=== PATIENT | female | born 1940 | race Two or more races ===

== ENCOUNTER 2016-12-07 09:44 | Emergency (ER) | payer OTHER ==
[~2016-12-07] VITALS: Ht 152.4 cm; Wt 59.0 kg
[~2016-12-07 09:44] MED LIST: CIPR500T4 PO; DICL50TA11 PO; DIVA250T12 PO; LABE200T25 PO; LISI40TA9 PO; METF-382 PO; QUET25TA26 PO
[2016-12-07 09:48] VITALS: Ht 152.4 cm; Wt 59.0 kg
[2016-12-07] MEDS ORDERED: SOD CHLORIDE 0.9% 500 ML IV STA (10:33)
[2016-12-07] MEDS ORDERED: DIVA500T15 PO (10:50)
[2016-12-07] MEDS ORDERED: NIFE90TA11 PO (10:51)
[2016-12-07] MEDS ORDERED: METF500T3 PO (10:51)
[2016-12-07] MEDS ORDERED: QUET50TA22 PO (10:52)
[2016-12-07] MEDS ORDERED: ASPI-664 PO (10:52)
[2016-12-07] MEDS ORDERED: LEVO75TA65 PO (10:52)
[2016-12-07 11:21] LABS: ALBUMIN 4.5 g/dl (3.3-4.9)
[2016-12-07 11:22] LABS: POTASSIUM 3.9 mmol/L (3.5-5.1)
[2016-12-07 11:23] LABS: BASOPHILS % 0.5 % (0.0-2.0); EOSINOPHILS % 0.4 % (0.0-7.0); HEMATOCRIT 41.1 % (37.0-47.0); HEMOGLOBIN 13.7 g/dl (12.0-16.0); LYMPHOCYTES # 3.2 10^3/ul (0.8-2.9); LYMPHOCYTES % 38.6 % (15.0-51.0); MEAN CORPUSCULAR HEMOGLOBIN 30.4 pg (29.0-33.0); MEAN CORPUSCULAR HGB CONC 33.4 g/dl (32.0-37.0); MEAN CORPUSCULAR VOLUME 90.9 fl (82.0-101.0); MEAN PLATELET VOLUME 7.1 fl (7.4-10.4); MONOCYTE # 0.5 10^3/ul (0.3-0.9); NEUTROPHIL # 4.5 10^3/ul (1.6-7.5); NEUTROPHILS % 54.5 % (39.0-77.0); PLATELET COUNT 317 10^3/UL (140-440); RED BLOOD COUNT 4.52 10^6/ul (4.20-5.40); RED CELL DISTRIBUTION WIDTH 13.6 % (11.5-14.5); UNCORRECTED WBC 8.2 10^3/ul (4.8-10.8); WHITE BLOOD COUNT 8.2 10^3/ul (4.8-10.8)
[2016-12-07 11:24] LABS: BILIRUBIN,INDIRECT 0.3 mg/dl (0-1.1); BILIRUBIN,TOTAL 0.3 mg/dl (0.2-1.3); CREATININE 0.78 mg/dl (0.44-1.00)
[2016-12-07 11:25] LABS: CALCIUM 9.2 mg/dl (8.4-10.2)
[2016-12-07 11:28] LABS: CONDITION 1
[2016-12-07 12:03] VITALS: BP 165/88; PULSE 75; RESP 18
--- NOTE | 2016-12-25 06:45 | EN ---
Date/Time of Note Date/Time of Note DATE: 12/07/16 TIME: 10:38 (AVE YOUNG) ER Progress Note 76 y/o female, accompanied by son presents to ED for decreased appetite for about 2 weeks, generalized weakness. Her son states that she only chews her food and spits it out but usually prefers cookies or sweet foods. Denies headache, loss of consciousness, dizziness, blurry vision, changes in vision, photophobia, facial pain, ear pain, throat pain, difficulty swallowing, neck pain, shoulder pain, chest pain, cough, hemoptysis, abdominal pain, back pain, nausea, vomiting, hematochezia, diarrhea, constipation, urinary symptoms, bladder and bowel incontinences, extremity weakness, extremity tenderness, numbness or tingling sensation, difficulty walking, recent travel, recent exposure to illness, recent antibiotic use in the last 3 months, fever, chills. Allergy: NKA PMH: Diabetes, seizures, hypertension, hypothyroidism. Medications: Metformin, lisinopril, aspirin, divalproex, nifedipine, levothyroxine Surgery: Denies Primary Social History: Retired Quit smoking cigarettes "when she was young." Denies use of alcohol, use of illegal drugs. Review of systems: Denies on all except generalized weakness. CONSTITUTIONAL: Well-appearing; well-nourished; in no apparent distress.~ HEAD: Normocephalic; atraumatic.~ No visible or palpable masses. EYES: Conjunctiva clear, sclera non-icteric, EOM intact. PERRL Ears: Hearing intact. EACs clear, TMs non-bulging, non-inflamed, translucent & mobile, ossicles normal appearance, No obstructions, no erythema, no discharges Nose: No obstructions. No polyps. No external lesions. Mucosa non-inflamed. No external lesions, septum and turbinates normal. No rhinorrhea. No discharges. Frontal sinus is non-tender to palpation. Maxillary sinus is non-tender to palpation. MOUTH: Moist mucous membranes, no lesion, no obstructions, no vesicles, no thrush TEETH: No obvious carries or periodontal diseases. No gingival inflammation, lesions, bleeding, discharge. Throat: Uvula in midline. Right tonsil is +1 with no erythema, no exudate. Left tonsil is +1 with no erythema, no exudate. Tolerating secretions well. Good gag reflex. Neck: Supple, without lesions, bruits, or adenopathy. No mass. Thyroid non- enlarged and non-tender to palpation. CHEST: Symmetrical chest. Respirations even and not labored. No retractions noted. CARDIOVASCULAR: Normal S1, S2. RRR. No murmurs, gallops. RESPIRATORY: Normal chest excursion with respiration; breath sounds clear and equal bilaterally; no wheezes, rhonchi, or rales. Breathing even and unlabored. Speaking in clear, full, and complete sentences w/ ease. ABDOMEN: Normal bowel sounds normal. Soft, round, non-distended, non-guarding, no tenderness, no rebound, no organomegaly, no masses, no pulsating abdominal mass. No hernia. No peritoneal signs. : NO CVA Tenderness. BACK: Symmetrical shoulder. Spine is midline without deformity, tenderness. No evidence of trauma or deformity. PELVIS: Stable pelvis. No evidence of trauma or deformity.~ MUSCULOSKELETAL: Normal gait and station. No misalignment, asymmetry, crepitation, defects, tenderness, masses, effusions, decreased range of motion, instability, atrophy or abnormal strength or tone in the head, neck, spine, ribs , pelvis or extremities. No calf tenderness. NEUROVASCULAR: Distal pulses are present. Pedal pulse are present, equal, and normal. Cap refills are < 2 seconds. NEUROLOGIC: Alert and oriented x4. Speaks full and clear sentences. Cranial Nerves II-XII normal. Sensation to pain, touch, and proprioception normal. Grossly unremarkable. No neurologic deficits. Romberg test is negative. PSYCHOLOGICAL: The patients mood and manner are appropriate. No hallucinations , delusions. Not SI. Not HI. Has the capacity to decide for himself/herself. SKIN: Normal for age and ethnicity; warm; dry; good turgor; no apparent lesions or exudates. No rashes, hives, discoloration. Intact. Normal Adult Physical Exam-Extensive CONSTITUTIONAL: Generalized weakness. No apparent distress HEAD: Normocephalic; atraumatic.No visible or palpable masses, depressions, or scarring EYES: Conjunctiva clear, sclera non-icteric, EOM intact. PERRL; No exudates, hemorrhages. No discharges. Ears: Hearing intact. EACs clear, TMs non-bulging, non-inflamed, translucent & mobile, ossicles normal appearance, No obstructions, no erythema, no discharges Nose: No obstructions. No polyps. No external lesions. Mucosa non-inflamed. No external lesions, mucosa septum and turbinates normal. No rhinorrhea. No discharges. Frontal sinus is non-tender to palpation. Maxillary sinus is non- tender to palpation. MOUTH: Moist mucous membranes, no lesion, no obstructions, no vesicles, no thrush TEETH: No obvious carries or periodontal diseases. No gingival inflammation, lesions, bleeding, discharge. Throat: Uvula in midline. Right tonsil is +2 with no erythema, no exudate. Left tonsil is +2 with no erythema, no exudate. Tolerating secretions well. No Obstructions, lesions. Good gag reflex. Neck: Supple, without lesions, bruits, or adenopathy. No mass. Thyroid non- enlarged and non-tender to palpation. CHEST: Symmetrical chest. Respirations even and not labored. No retractions noted. CARDIOVASCULAR: Normal S1, S2. RRR. No murmurs, gallops. RESPIRATORY: Normal chest excursion with respiration; breath sounds clear and equal bilaterally; no wheezes, rhonchi, or rales. Breathing even and unlabored. Speaking in clear, full, and complete sentences w/ ease. ABDOMEN: Normal bowel sounds. Soft, round, nondistended, no guarding, no tenderness, no rebound, no organomegaly, no masses no pulsating abdominal mass. No peritoneal signs. : No CVA Tenderness. BACK: Symmetrical shoulder. Spine is midline without deformity, tenderness. No evidence of trauma or deformity. PELVIS: Stable pelvis. No evidence of trauma or deformity.~ MUSCULOSKELETAL: Normal gait and station. No misalignment, asymmetry, crepitation, defects, tenderness, masses, effusions, decreased range of motion, instability, atrophy or abnormal strength or tone in the head, neck, spine, ribs , pelvis or extremities. No calf tenderness. NEUROVASCULAR: Distal pulses are present. Pedal pulse are present, equal, and normal. Cap refills are < 2 seconds. NEUROLOGIC: Alert and oriented x4. Speaks full and clear sentences. Follows simple commands. Normal sensation to pain, touch, and proprioception normal. Grossly unremarkable. No unilateral deficits. No focal deficits. No neurologic deficits. PSYCHOLOGICAL: The patients mood and manner are appropriate. SKIN: Normal for age and ethnicity; warm; dry; good turgor; no apparent lesions or exudates. No rashes, hives, discoloration. Intact. ED course: Examination is unremarkable except generalized weakness. Blood works ordered: Awaiting for results. EKG: Differential diagnosis: Generalized weakness, decreased appetite, electrolyte imbalance ED COURSE Male - full work-up Examination: Unremarkable examination except Disease process, medical treatment, possible follow-up care was explained to patient and son. They both verbalized understanding and agreed with diagnostic tests medical treatment, and follow-up care. EKG. Blood works are unremarkable. Medications: Case and medical management was discussed with Dr. Per Bardales. He agreed with present treatment and after care. Patient instructed Instructed to follow-up with his PCP in 24 hours. Instructed to Call 911 for chest pain, shortness of breath. Advised to come back here in ED as soon as possible for severity of symptoms which includes but not limited to: any new symptoms; shortness of breath/difficulty of breathing; cardiovascular changes; severe gastrointestinal symptoms; signs and symptoms of bleeding and or infection; signs of compartment syndrome/neurovascular changes; neurological changes/deficits. Patient and family member verbalized understanding. Upon discharge, patient is alert and oriented x 4, speaks full and clear sentences, denies pain, has no neurological deficits, has no neurovascular deficits, difficulty of breathing. Breathing even and unlabored. Lung sounds are clear to auscultation. Not in distress. Appears comfortable. Not in distress. Ambulatory with steady gait. Appears satisfied with care provided here in ED. (AVE YOUNG) medical decision making: Patient seen independently along with nurse practitioner. Briefly, patient presented with decreasing appetite for 3 months in the setting of dementia. According to the son, he has been able to take care for at home. Diagnostic lab tests demonstrated no evidence of infection dehydration or other high-risk concerns. After discussion of lab tests and clinical findings with the son, patient seemed appropriate for outpatient care. Diagnostic impression: Dementia Discharge: Home in stable condition Discharge instructions: Patient is to follow-up with primary care doctor. (PER BARDALES) AVE YOUNG Dec 07, 2016 10:51 PER BARDALES Dec 25, 2016 06:45
== END 2016-12-07 12:04 | disposition home or self-care (01) ==
LOC: E/R 09:44
DX: F03.90 Unspecified dementia, unspecified severity, without behavioral disturbance, psychotic disturbance, mood disturbance, and anxiety (principal); I10 Essential (primary) hypertension; E03.9 Hypothyroidism, unspecified; E11.9 Type 2 diabetes mellitus without complications; Z79.82 Long term (current) use of aspirin; Z79.84 Long term (current) use of oral hypoglycemic drugs; Z87.891 Personal history of nicotine dependence
CPT/HCPCS: 36415; 80053; 83690; 85025; 93005; 99284; J7040

== ENCOUNTER 2017-05-10 09:30 | Emergency (ER) | payer OTHER ==
[~2017-05-10] VITALS: Ht 157.5 cm; Wt 57.0 kg
[~2017-05-10 09:30] MED LIST changes: +ASPI-664 PO; -CIPR500T4 PO; -DICL50TA11 PO; -DIVA250T12 PO; +DIVA500T15 PO; -LABE200T25 PO; +LEVO75TA65 PO; -METF-382 PO; +METF500T3 PO; +NIFE90TA11 PO; -QUET25TA26 PO; +QUET50TA22 PO
[2017-05-10 09:31] VITALS: Ht 157.5 cm; Wt 57.0 kg
[2017-05-10] MEDS ORDERED: CEFEPIME 2GM/50 ML (PMX) 50 ML IVPB STA (10:02)
[2017-05-10] MEDS ORDERED: SODIUM CHLORIDE 0.9% 1L BAG IV* STA (10:02)
[2017-05-10] MEDS ORDERED: SOD CHLORIDE 0.9% 1,000 ML IV ONE (10:30)
[2017-05-10 10:56] LABS: ADD SCAN DIFF NO
[2017-05-10 11:01] LABS: BASOPHILS % 0.4 % (0.0-2.0); EOSINOPHILS % 0.1 % (0.0-7.0); HEMATOCRIT 38.6 % (37.0-47.0); HEMOGLOBIN 13.3 g/dl (12.0-16.0); LYMPHOCYTES # 1.5 10^3/ul (0.8-2.9); LYMPHOCYTES % 14.9 % (15.0-51.0); MEAN CORPUSCULAR HEMOGLOBIN 30.2 pg (29.0-33.0); MEAN CORPUSCULAR HGB CONC 34.5 g/dl (32.0-37.0); MEAN CORPUSCULAR VOLUME 87.7 fl (82.0-101.0); MEAN PLATELET VOLUME 8.6 fl (7.4-10.4); MONOCYTE # 0.7 10^3/ul (0.3-0.9); MONOCYTES % 6.9 % (0.0-11.0); NEUTROPHIL # 7.7 10^3/ul (1.6-7.5); NEUTROPHILS % 77.4 % (39.0-77.0); PLATELET COUNT 318 10^3/UL (140-415); RED CELL DISTRIBUTION WIDTH 12.7 % (11.5-14.5); WHITE BLOOD COUNT 9.9 10^3/ul (4.8-10.8)
[2017-05-10 11:16] LABS: ALANINE AMINOTRANSFERASE 17 IU/L (13-69); ALBUMIN 4.6 g/dl (3.3-4.9); ALBUMIN/GLOBULIN RATIO 1.24; ALKALINE PHOSPHATASE 75 IU/L (42-121); ANION GAP 14 (8-16); ASPARTATE AMINO TRANSFERASE 29 IU/L (15-46); BILIRUBIN,INDIRECT 0.3 mg/dl (0-1.1); BILIRUBIN,TOTAL 0.3 mg/dl (0.2-1.3); BLOOD UREA NITROGEN 8 mg/dl (7-20); CALCIUM 9.2 mg/dl (8.4-10.2); CARBON DIOXIDE 30 mmol/L (21-31); CHLORIDE 97 mmol/L (97-110); CREATININE 0.77 mg/dl (0.44-1.00); GLUCOSE 119 mg/dl (70-220); POTASSIUM 3.5 mmol/L (3.5-5.1); SODIUM 137 mmol/L (135-144); TOTAL PROTEIN 8.3 g/dl (6.1-8.1)
[2017-05-10 11:21] LABS: INR 0.99; PROTIME 13.1 Sec (12.2-14.2)
--- NOTE | 2017-05-10 11:25 | RADRPT ---
PROCEDURE: Chest x-ray CLINICAL INDICATION: Fall TECHNIQUE: Chest single view COMPARISON: 05/28/2015 FINDINGS: There is stable mild cardiomegaly and an sclerotic aortic calcification. Pulmonary vessels are norm al in caliber. Lung volumes are low. No confluent pneumonia seen. Costophrenic angles sharp. No pneumothorax is identified. Bones are osteopenic. IMPRESSION: No acute cardiopulmonary disease. Mild cardiomegaly and atherosclerotic aortic calcification Low lung volumes Osteopenia RPTAT: HH .Gonzales Cornejo MD, MD Date Time Electronically viewed and signed by .Gonzales Cornejo MD, MD on 05/10/2017 11:24 .W/
[2017-05-10 11:30] LABS: PARTIAL THROMBOPLASTIN TIME 32.5 Sec (25.0-35.0); TROPONIN-I < 0.012 ng/ml (0.00-0.12)
--- NOTE | 2017-05-10 11:46 | RADRPT ---
PROCEDURE: CT Brain without contrast. CLINICAL INDICATION: Right forehead swelling status post fall TECHNIQUE: A CT of the brain was performed on a multidetector CT scanner utilizing axial sections from the skull base through the vertex without contrast. Images were reviewed on a high-resolution [employer] workstation. Exam CTDI = 44.73 x 2, and 45.01 mGy and the DLP = 720.23 mGy-cm. One or more of the following dose reduction techniques were used: Automated exposure control Adjustment of the mA and/or kV according to patient size. Use of iterative reconstruction technique. COMPARISON: CT head 05/23/2015. FINDINGS: Moderate diffuse cerebral and cerebellar atrophy is present. There is proportionate dilatation of t he ventricular system and sulci in a symmetric fashion. There is prominence of the extraaxial spaces secondary to atrophy. There is no evidence of intracranial hemorrhage, mass effect or midline shift . There is approximately 4 x 2 cm scalp hematoma on the right forehead with no underlying skull frac ture. No abnormal intra-axial or extra-axial fluid collections are seen. The density of the brain i s normal and the adams/white matter differentiation is well preserved. Mild to moderate patchy diffu se deep white matter microangiopathic ischemic change is seen. The osseous structures are unrema rkable. Paranasal sinuses are clear. Vascular calcifications are identified. IMPRESSION: 1. No intracranial hemorrhage, mass effect or midline shift. 2. Moderate generalized atrophy. Mild the month microangiopathic ischemic change. 3. Intracranial atherosclerosis. 4. Right forehead scalp hematoma with no underlying skull fracture. RPTAT: BB .Jude Carroll MD, Date Time Electronically viewed and signed by .Jude Carroll MD, MD on 05/10/2017 11:46 .O/
--- NOTE | 2017-05-10 11:51 | RADRPT ---
PROCEDURE: CT maxillofacial bones. CLINICAL INDICATION: Right periorbital swelling. Right black eye. TECHNIQUE: Multiphase CT scan of the face was performed in the axial plane. Coronal and sagittal re-formations were performed. The CTDI measures 29.41 mGy. The calculated radiation dose measures 5 02.60 mGy cm. One or more of the following dose reduction techniques were used: Automated exposure control. Adjustment of the mA and/or kV according to patient size. Use of iterative reconstruction technique. COMPARISON: None FINDINGS: Right periorbital soft tissue swelling with no orbital rim fracture. Right retro-orbital fat planes are unremarkable. The mandible is identified demonstrating no evidence of fracture or bony dysplasi a. There is no evidence of adjacent soft tissue swelling. The mid face and bony orbits demonstrate no evidence of acute fracture. Evaluation of the orbits de monstrates the globes to be normal in their size, shape, and attenuation bilaterally. No definite i ntra or extraconal soft tissue masses are seen. The optic nerve and nerve sheath complexes bilatera lly appear unremarkable.Evaluation of the adjacent paranasal sinuses demonstrate no evidence of muco alina disease, air-fluid level, or opacification. There is a retropharyngeal course of bilateral inter nal carotid artery with circumferential calcified plaques. IMPRESSION: 1. Marked right periorbital soft tissue swelling with no orbital rim fracture. RPTAT: BB .Jude Carroll MD, Date Time Electronically viewed and signed by .Jude Carroll MD, on 05/10/2017 11:50 .O/
[2017-05-10 12:29] LABS: UR BILIRUBIN (Dip) NEGATIVE (NEGATIVE); UR BLOOD (Dip) NEGATIVE (NEGATIVE); UR CLARITY CLEAR (CLEAR); UR COLOR LT. YELLOW (YELLOW); UR GLUCOSE (Dip) NEGATIVE (NEGATIVE); UR KETONES (Dip) NEGATIVE (NEGATIVE); UR LEUKOCYTE ESTERASE (Dip) NEGATIVE (NEGATIVE); UR NITRITE (Dip) NEGATIVE (NEGATIVE); UR TOTAL PROTEIN (Dip) NEGATIVE (NEGATIVE); UR UROBILINOGEN (Dip) 0.2 E.U./dL (0.1-1.0)
[2017-05-10] MEDS ORDERED: LABETALOL HCL 20MG INJ IV ONE ×2 (13:00→14:00)
[2017-05-10 13:02] VITALS: TEMP 98.5
[2017-05-10] MEDS ORDERED: TYL500 PO (13:38)
[2017-05-10] MEDS ORDERED: ACET1TAB40 PO (13:38)
[2017-05-10 14:32] VITALS: BP 166/115; PULSE 98; RESP 20
[2017-05-10 14:43] LABS: ADD UMIC YES
--- NOTE | 2017-05-10 14:47 | ERD ---
ER Documentation Chief Complaint Date/Time DATE: 05/10/17 TIME: 14:40 Chief Complaint BIB SON C/O FACIAL INJURY S/P FALL TODAY. BRUISING OF R EYE. HEAD LAC &PAIN HPI This 76-year-old female presented for a facial contusion after falling today. She states that her legs are occasionally weak in that 1 of them just gave out while she was walking. She denies any leg pain. She has no altered mental status. She has a mild headache. She is not any blood thinners except for aspirin. She denies chest pain, shortness of breath, any focal weakness. She has had no fevers or chills per ROS All systems reviewed and are negative except as per history of present illness. Medications Home Meds Active Scripts Acetaminophen with Codeine (Acetaminophen-Cod #3 Tablet) 1 Each Tablet, 1 TAB PO Q6H, #7 TAB Prov:RACHELBRANDEN DO 05/10/17 Acetaminophen* (Tylenol*) 500 Mg Tab, 500 MG PO Q6 Y for MILD PAIN LEVEL 1-3, # 16 TAB Prov:BRANDEN RAMOS DO 05/10/17 Reported Medications Quetiapine Fumarate* (Quetiapine Fumarate*) 50 Mg Tablet, 50 MG PO HS, TAB 12/07/16 Aspirin (Low Dose Aspirin) 81 Mg Tablet.dr, 81 MG PO DAILY, #30 TAB 12/07/16 Levothyroxine Sodium* (Levoxyl*) 75 Mcg Tablet, 75 MCG PO BEFORE BREAKFAST, #30 TAB 12/07/16 Nifedipine* (Nifedipine ER*) 90 Mg Tablet.er, 90 MG PO DAILY, TAB 12/07/16 Metformin Hcl* (Metformin Hcl* ER) 500 Mg Tab.sr.24h, 500 MG PO BID, #30 TAB 12/07/16 Divalproex Sodium* (Divalproex ER*) 500 Mg Tab.er.24h, 500 MG PO QHS, #30 TAB.SA 12/07/16 Lisinopril* (Lisinopril*) 40 Mg Tablet, 40 MG PO DAILY, #30 TAB 06/04/16 Allergies Allergies: Coded Allergies: No Known Allergy (Unverified , 12/07/16) PER PT PMhx/Soc History of Surgery: No Anesthesia Reaction: No Hx Neurological Disorder: Yes (SEIZURE, LAST WAS 11/2014. ON KEPPRA AND VIMPAT.) Hx Respiratory Disorders: No Hx Cardiac Disorders: Yes (HTN, HIGH CHOLESTEROL) Hx Psychiatric Problems: No Hx Miscellaneous Medical Probl: Yes (Dementia, hx ov CVA with left sided weakness; seizure disorder. ) Hx Alcohol Use: No Hx Substance Use: No Hx Tobacco Use: No Smoking Status: Never smoker Physical Exam Vitals Vital Signs Date Time Temp Pulse Resp B/P Pulse Ox O2 Delivery O2 Flow Rate FiO2 05/10/17 14:32 98 20 166/115 98 Room Air 05/10/17 13:47 88 198/111 05/10/17 13:02 98.5 95 20 214/99 99 Room Air 05/10/17 09:31 99.4 107 18 196/93 96 Physical Exam Const: [] No distress Head: Abrasion to right forehead with right eyelid swelling and purpuric bruising. Eyes: Normal Conjunctiva, EOMI, PERRLA ENT: Normal External Ears, Nose and Mouth. Tympanic membranes without fluid or blood Neck: Full range of motion..~ No meningismus. Resp: Clear to auscultation bilaterally Cardio: Regular rate and rhythm, no murmurs Abd: Soft, non tender, non distended. Normal bowel sounds Skin: No petechiae or rashes Back: No midline or flank tenderness Ext: No cyanosis, or edema, mild bilateral knee crepitus, 5 out of 5 strength. Distal pulses intact all 4 extremities Neur: Awake and alert and oriented 3, no focal deficits, cranial nerves II through XII intact, no cerebellar deficits, normal gait. Psych: Normal Mood and Affect Result Diagram: 05/10/17 1045 05/10/17 1045 Results 24 hrs Laboratory Tests Test 05/10/17 10:45 05/10/17 12:10 White Blood Count 9.910^3/ul Red Blood Count 4.4010^6/ul Hemoglobin 13.3g/dl Hematocrit 38.6% Mean Corpuscular Volume 87.7fl Mean Corpuscular Hemoglobin 30.2pg Mean Corpuscular Hemoglobin Concent 34.5g/dl Red Cell Distribution Width 12.7% Platelet Count 20024^3/UL Mean Platelet Volume 8.6fl Neutrophils % 77.4% Lymphocytes % 14.9% Monocytes % 6.9% Eosinophils % 0.1% Basophils % 0.4% Nucleated Red Blood Cells % 0.0/100WBC Neutrophils # 7.710^3/ul Lymphocytes # 1.510^3/ul Monocytes # 0.710^3/ul Eosinophils # 0.010^3/ul Basophils # 0.010^3/ul Nucleated Red Blood Cells # 0.010^3/ul Prothrombin Time 13.1Sec Prothrombin Time Ratio 1.0 INR International Normalized Ratio 0.99 Activated Partial Thromboplast Time 32.5Sec Sodium Level 137mmol/L Potassium Level 3.5mmol/L Chloride Level 97mmol/L Carbon Dioxide Level 30mmol/L Anion Gap 14 Blood Urea Nitrogen 8mg/dl Creatinine 0.77mg/dl Glucose Level 119mg/dl Lactic Acid Level 1.3mmol/L Calcium Level 9.2mg/dl Total Bilirubin 0.3mg/dl Direct Bilirubin 0.00mg/dl Indirect Bilirubin 0.3mg/dl Aspartate Amino Transf (AST/SGOT) 29IU/L Alanine Aminotransferase (ALT/SGPT) 17IU/L Alkaline Phosphatase 75IU/L Troponin I < 0.012ng/ml Total Protein 8.3g/dl Albumin 4.6g/dl Globulin 3.70g/dl Albumin/Globulin Ratio 1.24 Urine Color LT. YELLOW Urine Clarity CLEAR Urine pH 8.0 Urine Specific [place] 1.010 Urine Ketones NEGATIVE Urine Nitrite NEGATIVE Urine Bilirubin NEGATIVE Urine Urobilinogen 0.2 E.U./dL Urine Leukocyte Esterase NEGATIVE Urine Hemoglobin NEGATIVE Urine Glucose NEGATIVE% Urine Total Protein NEGATIVE Current Medications Medications (Trade) Dose Ordered Sig/Pau Route PRN Reason Start Time Stop Time Status Last Admin Dose Admin Sodium Chloride (NS) 1,000 ml @ 1,000 mls/hr Q1H ONCE IV 05/10/17 10:30 05/10/17 11:29 DC 05/10/17 10:30 Sodium Chloride 1770 ml 1,770 ml BOLUS OVER 2 HOURS STAT IV* 05/10/17 10:02 05/10/17 10:10 DC Cefepime HCl (Maxipime 2gm/50 ml (Pmx)) 50 ml @ 100 mls/hr ONCE STAT IVPB 05/10/17 10:02 05/10/17 10:31 DC 05/10/17 11:32 Labetalol HCl (Labetalol) 10 mg ONCE ONCE IV 05/10/17 13:00 05/10/17 13:06 DC 05/10/17 13:10 Labetalol HCl (Labetalol) 10 mg ONCE ONCE IV 05/10/17 14:00 05/10/17 14:01 DC 05/10/17 13:54 Procedures/MDM Facial contusion with no loss of consciousness or neurological deficits. She did have hypertensive urgency because she states she did not have a chance to take her blood pressure medications today but does not usually have extremely high blood pressure. Believe this is. Because patient has bilateral quadriceps weakness secondary to nonuse that she does not climb stairs. She is fully ambulatory without difficulty. Full workup was performed. No evidence of intracranial hemorrhage, evidence of cardiac dysfunction. No evidence of infection. Patient is feeling well in the emergency room and is happy to go home. Am discharging her with Tylenol with codeine for severe pain and Tylenol for pain. I have also instructed her on exercises she can do to increase her quadriceps strength of this is a very common cause of falls in the elderly. She is with her son and they both agree that is appropriate for her to go home. He did take 2 doses of labetalol in order to lower her high blood pressure. She is going to take her blood pressure medication when she gets home. Primary care follow-up in the next 1-2 days and strict return precautions for any signs of altered mental status, vomiting or any other concerning symptom. CT head interpretation: I see no acute process except for soft tissue swelling about the right forehead and eye, I see no hemorrhage, no mass-effect no midline shift, no skull fracture. CT maxillofacial: I see no acute process, I see no fractures of orbits or any facial bones, there is soft tissue swelling. Chest x-ray interpretation: Poor inspiration, I see no other acute process. See no infiltrates, no pulmonary edema, no pneumothorax, no fractures telemetry monitor interpretation: Normal sinus rhythm without arrhythmia Critical care time 31 minutes: This includes treatment of hypertensive urgency and patient with an acute headache.. Patient's blood pressure was very elevated was difficult to lower. Take 2 doses of 10 mg labetalol to lower to a more acceptable level with both a systolic and diastolic above 201 100 respectively. Patient did have resolution of her headache after this., I did visit a bedside many times to reassess her status, performed chart review and discussed extensively with patient and son. This does not include any billable procedures. Departure Diagnosis: Primary Impression: Hypertensive urgency Additional Impressions: Contusion of face Fall Condition: Stable Patient Instructions: Facial Contusion, No Wakeup, Hypertension, Established, Out Of Control, Fall Prevention Additional Instructions: Llame al doctor MAANA y marcin digna DEE PARA DENTRO DE 1-2 [place].Dgale a la secretaria que nosotros le instruimos hacer esta dee.Avise o llame si castañeda condicin se empeora antes de la dee. Regresa aqui si peor o no mejor. BRANDEN RAMOS DO May 10, 2017 14:47
== END 2017-05-10 14:33 | disposition home or self-care (01) ==
LOC: FTE 09:30
DX: I16.0 Hypertensive urgency (principal); I10 Essential (primary) hypertension; W18.39XA Other fall on same level, initial encounter; Y92.9 Unspecified place or not applicable; Z79.82 Long term (current) use of aspirin; Z79.84 Long term (current) use of oral hypoglycemic drugs
CPT/HCPCS: 36415; 70450; 70486; 71010; 80053; 81001; 83605; 84484; 85025; 85610; 85730; 87040; 87086; 93005; 96374; 96375; 96376; 99291; J0692; J7030; 81000; 81003; 81005

== ENCOUNTER 2017-08-15 07:04 | Emergency (ER) | payer OTHER ==
[~2017-08-15] VITALS: Ht 157.5 cm; Wt 61.4 kg
[~2017-08-15 07:04] MED LIST changes: +ACET1TAB40 PO; +TYL500 PO
[2017-08-15 07:08] VITALS: Ht 157.5 cm; Wt 61.4 kg
[2017-08-15] MEDS ORDERED: NICARDipine HCL 30 MG CAPSULE PO ONE (08:00)
[2017-08-15] MEDS ORDERED: LIDOCAINE 1% (MDV) 20 ML INJ SC ONE (08:00)
[2017-08-15] MEDS ORDERED: TRAM50TA2 PO (08:30)
--- NOTE | 2017-08-15 08:33 | ERD ---
ER Documentation Chief Complaint Date/Time DATE: 08/15/17 TIME: 08:31 Chief Complaint bharathi [id number], bilateral leg pain, denies injury HPI This is a 76-year-old female complains of pain in her right leg. The patient has had 4 months of a right knee swelling. The patient has no erythema no numbness weakness no focal neurological complaints. Family is here and states that is hard for her to walk she is complaining her knee is stiff and cannot move it. The patient uses a walker at baseline. The patient denies any redness calf pain short of breath chest pain ROS All systems reviewed and are negative except as per history of present illness. Medications Home Meds Active Scripts Tramadol HCl (Tramadol HCl) 50 Mg Tablet, 50 MG PO Q6, #20 TAB Prov:FLORENTIN LAUGHLIN DO 08/15/17 Acetaminophen with Codeine (Acetaminophen-Cod #3 Tablet) 1 Each Tablet, 1 TAB PO Q6H, #7 TAB Prov:BRANDEN RAMOS DO 05/10/17 Acetaminophen* (Tylenol*) 500 Mg Tab, 500 MG PO Q6 Y for MILD PAIN LEVEL 1-3, # 16 TAB Prov:BRANDEN RAMOS DO 05/10/17 Reported Medications Quetiapine Fumarate* (Quetiapine Fumarate*) 50 Mg Tablet, 50 MG PO HS, TAB 12/07/16 Aspirin (Low Dose Aspirin) 81 Mg Tablet.dr, 81 MG PO DAILY, #30 TAB 12/07/16 Levothyroxine Sodium* (Levoxyl*) 75 Mcg Tablet, 75 MCG PO BEFORE BREAKFAST, #30 TAB 12/07/16 Nifedipine* (Nifedipine ER*) 90 Mg Tablet.er, 90 MG PO DAILY, TAB 12/07/16 Metformin Hcl* (Metformin Hcl* ER) 500 Mg Tab.sr.24h, 500 MG PO BID, #30 TAB 12/07/16 Divalproex Sodium* (Divalproex ER*) 500 Mg Tab.er.24h, 500 MG PO QHS, #30 TAB.SA 12/07/16 Lisinopril* (Lisinopril*) 40 Mg Tablet, 40 MG PO DAILY, #30 TAB 06/04/16 Allergies Allergies: Coded Allergies: No Known Allergy (Unverified , 12/07/16) PER PT PMhx/Soc History of Surgery: No Anesthesia Reaction: No Hx Neurological Disorder: Yes (SEIZURE, LAST WAS 11/2014. ON KEPPRA AND VIMPAT.) Hx Respiratory Disorders: No Hx Cardiac Disorders: Yes (HTN, HIGH CHOLESTEROL) Hx Psychiatric Problems: No Hx Miscellaneous Medical Probl: Yes (Dementia, hx ov CVA with left sided weakness; seizure disorder. ) Hx Alcohol Use: No Hx Substance Use: No Hx Tobacco Use: No Smoking Status: Never smoker FmHx Family History: No coronary disease Physical Exam Vitals Vital Signs Date Time Temp Pulse Resp B/P Pulse Ox O2 Delivery O2 Flow Rate FiO2 08/15/17 07:08 98.7 90 20 200/100 97 Physical Exam Const: Well-developed, well-nourished Head: Atraumatic, normocephalic Eyes: Normal Conjunctiva, PERRLA, EOMI, normal sclera, no nystagmus ENT: Normal External Ears, Nose and Mouth, moist mucus membranes. Neck: Full range of motion. No meningismus, no lymphadenopathy. Resp: Clear to auscultation bilaterally, no wheezing, rhonchi, rales Cardio: Regular rate and rhythm, no murmurs, S1 S2 present Abd: Soft, non tender x 4, non distended. Normal bowel sounds, no guarding or rebound, no pulsitile abdominal masses or bruits Skin: No petechiae or rashes, no ecchymosis , no maculopapular rash Back: No midline or flank tenderness Ext: No cyanosis, or edema, FROM x 4, normal inspection, neurovascularly intact x 4, the right knee has a joint effusion but no erythema there is range of motion with minimal pain Neur: Awake and alert, STR 5/5 x 4, sensation intact x 4, no focal findings, cerebellum intact Psych: Normal Mood and Affect Results 24 hrs Current Medications Medications (Trade) Dose Ordered Sig/Pau Route PRN Reason Start Time Stop Time Status Last Admin Dose Admin Nicardipine HCl (Cardene) 30 mg ONCE ONCE PO 08/15/17 08:00 08/15/17 08:01 DC 08/15/17 08:13 Lidocaine (Xylocaine 1% (Mdv) 20 ml) 20 ml ONCE ONCE SC 08/15/17 08:00 08/15/17 08:01 DC Procedures/MDM Arthrocentesis by me: Patient consented, sterilely draped, full prep, time out performed. Anesthesia: 1% lidocaine locally Location: XOXOX[facility] Technique: 18 gauge needle aspiration Results: 65] ml of serous fluid Complications: Minimal bleeding. No complications. Patient is a chronic right knee joint effusion. There is no signs of septic joint. This is likely due to osteoarthritis. Will apply Derrick bandage and have him follow-up with Orth Departure Diagnosis: Primary Impression: Knee effusion, right Condition: Stable Patient Instructions: Knee Effusion FLORENTIN LAUGHLIN DO Aug 15, 2017 08:33
[2017-08-15 09:17] VITALS: BP 146/68; PULSE 105; RESP 20; TEMP 98.7
== END 2017-08-15 09:29 | disposition home or self-care (01) ==
LOC: E/R 07:04
DX: M25.461 Effusion, right knee (principal); R40.2242 Coma scale, best verbal response, confused conversation, at arrival to emergency department; I10 Essential (primary) hypertension; R40.2142 Coma scale, eyes open, spontaneous, at arrival to emergency department; R40.2362 Coma scale, best motor response, obeys commands, at arrival to emergency department; Z79.82 Long term (current) use of aspirin; Z79.84 Long term (current) use of oral hypoglycemic drugs